=== PATIENT | female | born 1995 | race Caucasian/White ===

== ENCOUNTER 2025-09-24 10:19 | Emergency (ER) | payer SELFPAY ==
[~2025-09-24] VITALS: Ht 167.6 cm; Wt 75.0 kg
[2025-09-24 10:26] VITALS: O2SAT 100
[2025-09-24 11:49] LABS: BASOPHILS % 0.4 % (0.0-2.0); EOSINOPHILS % 0.1 % (0.0-5.0); HEMATOCRIT. 38.7 % (36.0-48.0); HEMOGLOBIN. 12.8 g/dL (12.0-16.0); LYMPHOCYTES % 14.3 % (20.0-50.0); MEAN PLATELET VOLUME 7.2 fl (7.4-10.4); MONOCYTES % 10.3 % (2.0-8.0); NEUTROPHILS % 74.9 % (40.0-76.0); PLATELET 377 x1000/uL (130-400); RED BLOOD CELL COUNT 4.34 mill/uL (4.2-5.4); RED CELL DISTRIBUTION WIDTH 12.8 % (11.6-14.6)
[2025-09-24 12:07] LABS: CREATININE 0.7 mg/dL (0.6-1.0); UREA NITROGEN BLOOD 8 mg/dL (9-23)
[2025-09-24 12:09] LABS: ASPARTATE AMINOTRANSFERASE 15 IU/L (<34); BILIRUBIN DIRECT < 0.1 mg/dL (<=3.0)
[2025-09-24 12:10] LABS: BILIRUBIN TOTAL 0.2 mg/dL (0.1-1.0); PROTEIN TOTAL 7.6 g/dL (6.0-8.3)
[2025-09-24 12:16] LABS: HCG SCREEN NEGATIVE
[2025-09-24] MEDS ORDERED: METH4TAB95 MT (12:38)
[2025-09-24] MEDS: DEXAMETHASONE 10 MG/ML VIAL IV ONE (12:38)
[2025-09-24] MEDS: KETOROLAC 30MG/ML VIAL IM ONE (12:38)
[2025-09-24 12:47] VITALS: BP 115/78; PULSE 100; RESP 18; TEMP 36.7; O2SAT 100
== END 2025-09-24 13:05 | disposition home or self-care (01) ==
LOC: ER 10:19
DX: B34.9 Viral infection, unspecified (principal); Z20.822 Contact with and (suspected) exposure to COVID-19; Z79.899 Other long term (current) drug therapy
CPT/HCPCS: 99284; 96374; 87426; 80076; 80048; 84703; 87430; 83690; 83735; 85025; 87070; 87804 ×2; 36415; 96372; J1885; J1100; 96375